=== PATIENT | female | born 1935 | race Caucasian/White ===

== ENCOUNTER 2019-02-06 07:23 | Day surgery (SDC) | payer OTHER, BC ==
[2019-02-06] MEDS ORDERED: LIDOCAINE 100 MG SYRINGE (08:51)
[2019-02-06] MEDS ORDERED: PROPOFOL 200 MG INJ (08:51)
[2019-02-06] MEDS ORDERED: FENTAnyl 50 MCG/ML VIAL (08:51)
[2019-02-06] MEDS ORDERED: PROPOFOL 40 ML (08:51)
== END 2019-02-06 11:52 | disposition home or self-care (01) ==
LOC: GIL 07:23
DX: K44.9 Diaphragmatic hernia without obstruction or gangrene (principal); K29.30 Chronic superficial gastritis without bleeding; I10 Essential (primary) hypertension; I48.91 Unspecified atrial fibrillation; K31.7 Polyp of stomach and duodenum
CPT/HCPCS: 43239; 88305; 88312